=== PATIENT | male | born 1970 | race Caucasian/White ===

== ENCOUNTER 2016-10-16 21:10 | Inpatient (IN) | payer OTHER ==
[~2016-10-16] VITALS: Ht 182.9 cm; Wt 82.0 kg
[~2016-10-16 21:10] MED LIST: BACTRIM,SEPT1 TABLET PO; EXCEDRIN EXTRA1 EACH PO; GABAPENTIN400 MG PO; HYDROXYZINE PAM25 MG PO; NALTREXONE HCL50 MG PO; REMERON30 M2 PO; TRIUMEQ TABLET1 EACH PO; VIBRAMYCIN100 MG PO; WELLBUTRIN SR100 MG PO
[2016-10-16 22:08] LABS: HEMATOCRIT 53.8 % (38.0-50.0); MCH 27.8 PG (29.0-34.0); MCHC 35.3 G/DL (30.0-36.0); MCV 78.8 FL (86-99); MEAN PLAT.VOLUME 9.5 uM^3 (9.0-12.4); PLATELET COUNT 237 K/uL (156-360); RBC DIS.WIDTH-CV 14.4 % (11.8-14.6); RBC DIS.WIDTH-SD 38.1 % (39-53); RED BLOOD COUNT 6.83 M/uL (4.00-5.50); WHITE BLOOD COUNT 8.8 K/uL (4.1-10.2)
[2016-10-16 22:17] LABS: CHLORIDE 100 mEq/L (99-109); POTASSIUM 3.5 mEq/L (3.7-5.4); SODIUM 140 mEq/L (136-147)
[2016-10-16 22:19] LABS: GLUCOSE 120 mg/dL (70-99)
[2016-10-16 22:20] LABS: ANION GAP 23 MEQ/L (2-14)
[2016-10-16 22:22] LABS: SERUM ETHYL ALCOHOL 340 mg/dL
[2016-10-16 22:23] LABS: GFR ESTIMATE (CALCULATED) > 59 mL/min/
[2016-10-16 22:25] LABS: UREA NITROGEN (BUN) 25 mg/dL (9-23)
[2016-10-16 22:26] LABS: SALICYLATE < 5.0 MG/DL (15-30)
[2016-10-17 05:28] LABS: ADD MEDTOX COMMENT Y; AMPHETAMINE NEGATIVE (500 ng/mL); BARBITURATES NEGATIVE (200 ng/mL); BENZODIAZEPINES PRESUMPTIVE POSITIVE (150 ng/mL); COCAINE NEGATIVE (150 ng/mL); INTERNAL CONTROLS VALID? YES; METHADONE NEGATIVE (200 ng/mL); METHAMPHETAMINE NEGATIVE (500 ng/mL); OPIATES (MORPHINE) NEGATIVE (100 ng/mL); OXYCODONE NEGATIVE (100 ng/mL); PHENCYCLIDINE NEGATIVE (25 ng/mL); PROPOXYPHENE NEGATIVE (300 ng/mL); THC CANNABINOIDS PRESUMPTIVE POSITIVE (50 ng/mL); TRICYCLIC ANTIDEPRESSANTS NEGATIVE (300 ng/mL)
[2016-10-17 06:53] LABS: BENZODIAZEPINES QUANT VALUE 0 NG/ML; BENZODIAZEPINES, URINE SCREEN Negative (200 ng/mL)
[2016-10-17 14:28] VITALS: BP 120/88
[2016-10-17 15:19] VITALS: BP 120/88
[2016-10-18 07:26] VITALS: BP 164/88
[2016-10-18 15:32] VITALS: BP 126/81
[2016-10-19 07:16] VITALS: BP 138/72
[2016-10-19 10:24] VITALS: BP 153/87
[2016-10-19 11:37] VITALS: BP 121/86
[2016-10-19 15:27] VITALS: BP 135/93
[2016-10-20 07:43] VITALS: BP 128/93
[2016-10-20] MEDS ORDERED: GABAPENTIN400 MG PO (09:25)
[2016-10-20] MEDS ORDERED: WELLBUTRIN SR100 MG PO (09:25)
[2016-10-20] MEDS ORDERED: REMERON30 M2 PO (09:25)
[2016-10-20] MEDS ORDERED: BACTRIM,SEPT1 TABLET PO (09:25)
[2016-10-20] MEDS ORDERED: NALTREXONE HCL50 MG PO (09:25)
== END 2016-10-20 10:36 | disposition home or self-care (01) | DRG 896 ==
LOC: EME → EDBD 21:10 → EME 21:54 → 1WEST 10-17 10:05 → EDOF 10-17 10:05 → 1WEST 10-17 14:14
PROVIDERS: Emergency Medicine
DX: F11.20 Opioid dependence, uncomplicated (principal); F14.20 Cocaine dependence, uncomplicated; B59 Pneumocystosis; F10.20 Alcohol dependence, uncomplicated; B20 Human immunodeficiency virus [HIV] disease; B19.20 Unspecified viral hepatitis C without hepatic coma; F12.20 Cannabis dependence, uncomplicated; K21.9 Gastro-esophageal reflux disease without esophagitis; F41.9 Anxiety disorder, unspecified; Z91.19 Patient's noncompliance with other medical treatment and regimen; Z86.14 Personal history of Methicillin resistant Staphylococcus aureus infection
CPT/HCPCS: 71010; 80048; 84999; 85027; 90837; 93005; 99281; 99285; G0480; J1630; J2060; J2405; J7030; Q0177

== ENCOUNTER 2017-11-13 07:41 | Inpatient (IN) | payer OTHER ==
[~2017-11-13] VITALS: Ht 182.9 cm; Wt 72.7 kg
[2017-11-13 08:46] LABS: ALBUMIN 5.2 g/dL (3.2-4.8); CHLORIDE 68 mEq/L (99-109); POTASSIUM 3.9 mEq/L (3.7-5.4); SODIUM 131 mEq/L (136-147)
[2017-11-13 08:48] LABS: GLUCOSE 137 mg/dL (70-99)
[2017-11-13 08:49] LABS: TOTAL PROTEIN 10.6 g/dL (6.4-8.3)
[2017-11-13 08:50] LABS: TOTAL BILIRUBIN 2.7 mg/dL (0.0-1.0)
[2017-11-13 08:52] LABS: ALKALINE PHOSPHATASE 90 IU/L (3-129); CREATININE 4.7 mg/dL (0.6-1.3); GFR ESTIMATE (CALCULATED) 14 mL/min/ (58.99-99999)
[2017-11-13 08:53] LABS: UREA NITROGEN (BUN) 79 mg/dL (9-23)
[2017-11-13 08:54] LABS: AST (GOT) 144 IU/L (2-34)
[2017-11-13 08:55] LABS: ALT (GPT) 51 IU/L (3-49)
[2017-11-13 09:31] LABS: HEMATOCRIT 54.6 % (38.0-50.0); HEMOGLOBIN 20.2 G/DL (12.5-16.6); MCH 29.9 PG (29.0-34.0); MCV 80.8 FL (86-99); PLATELET COUNT 208 K/uL (156-360); RBC DIS.WIDTH-CV 13.7 % (11.8-14.6); RED BLOOD COUNT 6.76 M/uL (4.00-5.50); WHITE BLOOD COUNT 14.2 K/uL (4.1-10.2)
[2017-11-13] MEDS ORDERED: NEURONTIN800 MG PO (12:53)
[2017-11-13] MEDS ORDERED: ZOLOFT100 MG PO (12:53)
[2017-11-13 15:11] LABS: MAGNESIUM 2.1 mg/dL (1.3-2.7)
[2017-11-13 16:01] LABS: PHOSPHORUS 8.4 mg/dL (2.5-4.9)
[2017-11-13 16:14] LABS: BENZODIAZEPINES, URINE SCREEN Negative (200 ng/mL)
[2017-11-13 16:23] VITALS: BP 131/80
[2017-11-13 19:10] VITALS: BP 125/75
[2017-11-14 00:11] VITALS: BP 115/70
[2017-11-14 06:17] LABS: ALBUMIN 3.5 G/DL (3.2-4.8); ALKALINE PHOSPHATASE 49 IU/L (3-129); ALT (GPT) 32 IU/L (3-49); AST (GOT) 95 IU/L (2-34); CHLORIDE 83 MEQ/L (99-109); MAGNESIUM 2.2 mg/dl (1.3-2.7); SODIUM 128 MEQ/L (136-147); TOTAL BILIRUBIN 1.6 MG/DL (0.0-1.0); TOTAL PROTEIN 6.7 G/DL (6.4-8.3); UREA NITROGEN (BUN) 58 mg/dL (9-23)
[2017-11-14 06:25] LABS: CREATININE 1.5 MG/DL (0.6-1.3); GFR ESTIMATE (CALCULATED) 54 mL/min/ (58.99-99999); GLUCOSE 95 mg/dL (70-99); POTASSIUM 2.8 MEQ/L (3.7-5.4)
[2017-11-14 06:27] LABS: HEMATOCRIT 42.6 % (38.0-50.0); HEMOGLOBIN 15.2 G/DL (12.5-16.6); MCH 29.3 PG (29.0-34.0); MCHC 35.7 G/DL (30.0-36.0); MCV 82.2 FL (86-99); PLATELET COUNT 162 K/uL (156-360); RBC DIS.WIDTH-CV 12.6 % (11.8-14.6); RBC DIS.WIDTH-SD 38.4 % (39-53); RED BLOOD COUNT 5.18 M/uL (4.00-5.50); WHITE BLOOD COUNT 8.6 K/uL (4.1-10.2)
[2017-11-14 07:18] VITALS: BP 127/80
[2017-11-14 10:57] VITALS: BP 110/61
[2017-11-14 14:46] LABS: CHLORIDE 89 MEQ/L (99-109); SODIUM 134 MEQ/L (136-147)
[2017-11-14 14:51] LABS: GFR ESTIMATE (CALCULATED) > 59 mL/min/ (58.99-99999); GLUCOSE 99 mg/dL (70-99); UREA NITROGEN (BUN) 36 mg/dL (9-23)
[2017-11-14 16:00] VITALS: BP 110/61
[2017-11-14 19:15] VITALS: BP 129/80
[2017-11-14 23:50] VITALS: BP 128/79
[2017-11-15 06:03] LABS: CHLORIDE 94 MEQ/L (99-109); CREATININE 0.8 MG/DL (0.6-1.3); GFR ESTIMATE (CALCULATED) > 59 mL/min/ (58.99-99999); GLUCOSE 98 mg/dL (70-99); POTASSIUM 2.7 MEQ/L (3.7-5.4); SODIUM 136 MEQ/L (136-147); UREA NITROGEN (BUN) 23 mg/dL (9-23)
[2017-11-15 07:00] VITALS: BP 119/65
[2017-11-15 11:23] VITALS: BP 119/65
[2017-11-15 15:33] VITALS: BP 127/82
[2017-11-15 19:49] VITALS: BP 129/78
[2017-11-15 20:55] LABS: CHLORIDE 99 MEQ/L (99-109); CREATININE 0.8 MG/DL (0.6-1.3); GFR ESTIMATE (CALCULATED) > 59 mL/min/ (58.99-99999); GLUCOSE 111 mg/dL (70-99); MAGNESIUM 2.2 mg/dl (1.3-2.7); SODIUM 131 MEQ/L (136-147); UREA NITROGEN (BUN) 18 mg/dL (9-23)
[2017-11-15 21:03] LABS: POTASSIUM 4.7 MEQ/L (3.7-5.4)
[2017-11-16 00:26] VITALS: BP 124/90
[2017-11-16 05:40] LABS: CHLORIDE 103 MEQ/L (99-109); CREATININE 0.7 MG/DL (0.6-1.3); GFR ESTIMATE (CALCULATED) > 59 mL/min/ (58.99-99999); GLUCOSE 97 mg/dL (70-99); MAGNESIUM 2.1 mg/dl (1.3-2.7); SODIUM 136 MEQ/L (136-147); UREA NITROGEN (BUN) 17 mg/dL (9-23)
[2017-11-16 05:44] LABS: POTASSIUM 3.6 MEQ/L (3.7-5.4)
[2017-11-16 08:05] VITALS: BP 116/71
[2017-11-16 11:24] VITALS: BP 136/89
[2017-11-16] MEDS ORDERED: OMEPRAZOLE40 M1 PO (13:50)
[2017-11-16] MEDS ORDERED: REGLAN5 MG PO (13:50)
== END 2017-11-16 14:26 | disposition home or self-care (01) | DRG 683 ==
LOC: EME 07:41 → EDOF 14:22 → CANRESERV 14:23 → ENRESERV 14:23 → 4SOUTH 15:56 → ENPENDDIS 11-16 14:02 → 4SOUTH 11-16 14:26
PROVIDERS: Hospitalist; Internal Medicine; Physician Assistant; Physician Assistant Medical
DX: N17.9 Acute kidney failure, unspecified (principal); E86.0 Dehydration; E87.1 Hypo-osmolality and hyponatremia; E87.6 Hypokalemia; R11.2 Nausea with vomiting, unspecified; F10.20 Alcohol dependence, uncomplicated; F12.90 Cannabis use, unspecified, uncomplicated; F31.9 Bipolar disorder, unspecified; K21.9 Gastro-esophageal reflux disease without esophagitis; F17.210 Nicotine dependence, cigarettes, uncomplicated; B18.2 Chronic viral hepatitis C; Z21 Asymptomatic human immunodeficiency virus [HIV] infection status
CPT/HCPCS: 76536; 80048; 80048 91; 80053; 80306 90; 83735; 84100; 85027; 99281; 99285; C9113; G0378; J0780; J1644; J2405; J2765; J3411; J3480; J7030

== ENCOUNTER 2018-01-04 13:47 | Emergency (ER) | payer OTHER ==
[~2018-01-04] VITALS: Ht 180.3 cm; Wt 81.8 kg
[~2018-01-04 13:47] MED LIST changes: +NEURONTIN800 MG PO; +OMEPRAZOLE40 M1 PO; +REGLAN5 MG PO; +ZOLOFT100 MG PO
[2018-01-04 14:50] LABS: HEMATOCRIT 50.8 % (38.0-50.0); HEMOGLOBIN 18.2 G/DL (12.5-16.6); MCH 29.9 PG (29.0-34.0); MCHC 35.8 G/DL (30.0-36.0); MCV 83.6 FL (86-99); PLATELET COUNT 263 K/uL (156-360); RBC DIS.WIDTH-CV 13.8 % (11.8-14.6); RBC DIS.WIDTH-SD 41.4 % (39-53); RED BLOOD COUNT 6.08 M/uL (4.00-5.50); WHITE BLOOD COUNT 4.6 K/uL (4.1-10.2)
[2018-01-04 14:59] LABS: ALBUMIN 4.4 g/dL (3.2-4.8); CHLORIDE 108 mEq/L (99-109); POTASSIUM 3.6 mEq/L (3.7-5.4); SODIUM 144 mEq/L (136-147)
[2018-01-04 15:01] LABS: GLUCOSE 102 mg/dL (70-99)
[2018-01-04 15:02] LABS: TOTAL PROTEIN 8.7 g/dL (6.4-8.3)
[2018-01-04 15:03] LABS: TOTAL BILIRUBIN 0.6 mg/dL (0.0-1.0)
[2018-01-04 15:04] LABS: SERUM ETHYL ALCOHOL 396 mg/dL
[2018-01-04 15:05] LABS: ALKALINE PHOSPHATASE 73 IU/L (3-129); GFR ESTIMATE (CALCULATED) > 59 mL/min/ (58.99-99999)
[2018-01-04 15:06] LABS: UREA NITROGEN (BUN) 11 mg/dL (9-23)
[2018-01-04 15:07] LABS: AST (GOT) 69 IU/L (2-34)
[2018-01-04 15:08] LABS: ALT (GPT) 45 IU/L (3-49)
[2018-01-04 15:52] LABS: APPEARANCE CLEAR ((CLEAR)); BILIRUBIN NEGATIVE; BLOOD SMALL; COLOR YELLOW ((YELLOW)); GLUCOSE (STRIP) NEGATIVE; KETONES NEGATIVE; LEUKOCYTES NEGATIVE; NITRITE NEGATIVE; PROTEIN (STRIP) 30; SPECIFIC GRAVITY 1.008 (1.000-1.030); UROBILINOGEN 0.2 MG/DL (0.2-1.0)
[2018-01-04 15:59] LABS: AMPHETAMINE NEGATIVE (500 ng/mL); BARBITURATES NEGATIVE (200 ng/mL); BENZODIAZEPINES NEGATIVE (150 ng/mL); BUPRENORPHINE NEGATIVE (10 ng/mL); COCAINE NEGATIVE (150 ng/mL); METHADONE NEGATIVE (200 ng/mL); METHAMPHETAMINE NEGATIVE (500 ng/mL); OPIATES (MORPHINE) NEGATIVE (100 ng/mL); OXYCODONE NEGATIVE (100 ng/mL); PHENCYCLIDINE NEGATIVE (25 ng/mL); PROPOXYPHENE NEGATIVE (300 ng/mL); THC CANNABINOIDS PRESUMPTIVE POSITIVE (50 ng/mL); TRICYCLIC ANTIDEPRESSANTS NEGATIVE (300 ng/mL)
[2018-01-04 16:08] LABS: BACTERIA RARE /HPF; EPITHELIAL CELLS RARE /HPF; MUCUS TRACE /LPF; RED BLOOD CELLS NONE SEEN /HPF (0-5); WHITE BLOOD CELLS 0-5 /HPF (0-5)
[2018-01-04 19:12] VITALS: BP 132/61
== END 2018-01-04 19:14 | disposition home or self-care (01) ==
LOC: EME 13:47
PROVIDERS: Emergency Medicine
DX: F10.129 Alcohol abuse with intoxication, unspecified (principal); F12.10 Cannabis abuse, uncomplicated; Y90.8 Blood alcohol level of 240 mg/100 ml or more; B19.20 Unspecified viral hepatitis C without hepatic coma; K21.9 Gastro-esophageal reflux disease without esophagitis; F31.9 Bipolar disorder, unspecified; Z21 Asymptomatic human immunodeficiency virus [HIV] infection status; F17.200 Nicotine dependence, unspecified, uncomplicated
CPT/HCPCS: 80053; 81003; 84999; 85027; 99281; 99284; G0480